=== PATIENT | male | born 1990 | race Caucasian/White ===

== ENCOUNTER 2023-10-01 08:07 | Emergency (ER) | payer OTHER ==
[~2023-10-01] VITALS: Ht 182.9 cm; Wt 136.4 kg
[2023-10-01 08:12] VITALS: TEMP 97.8
[2023-10-01] MEDS: ondansetron/PF 4mg/2ml inj IV ONE (09:00)
[2023-10-01] MEDS: normal saline 1000ML IV soln IVB ONE (09:01)
[2023-10-01] MEDS: ketorolac tromethamine 15mg/ml inj. IV ONE (09:01)
[2023-10-01 09:13] LABS: BASOPHILS % (AUTO) 0.1 % (0-1); EOSINOPHILS # (AUTO) 0.1 X10'3 (0-0.9); EOSINOPHILS % (AUTO) 0.7 % (0-6); HEMATOCRIT 48.9 % (42.0-52.0); HEMOGLOBIN 16.2 g/dl (14.0-17.9); LYMPHOCYTES # (AUTO) 0.5 X10'3 (1.1-4.8); LYMPHOCYTES % (AUTO) 4.1 % (21-51); MEAN CORPUSCULAR HEMOGLOBIN 29.2 PG (27.0-31.0); MEAN CORPUSCULAR HGB CONC 33.2 g/dL (33.0-36.5); MEAN CORPUSCULAR VOLUME 88.1 FL (78-98); MONOCYTES # (AUTO) 0.5 X10'3 (0-0.9); MONOCYTES % (AUTO) 3.6 % (2-12); NEUTROPHILS # (AUTO) 11.5 X10'3 (1.8-7.7); NEUTROPHILS % (AUTO) 91.5 % (42-75); PLATELET COUNT 224 X10'3 (140-440); RED BLOOD COUNT 5.56 X10'6 (4.70-6.10); RED CELL DISTRIBUTION WIDTH 14.7 % (11.5-14.5); WHITE BLOOD COUNT 12.5 X10'3 (4.5-11.0)
[2023-10-01 09:24] LABS: ALANINE AMINOTRANSFERASE 44 U/L (12-78); ALBUMIN 4.2 G/DL (3.4-5.0); ALBUMIN/GLOBULIN RATIO 1.2 (1.1-1.5); ALKALINE PHOSPHATASE 75 IU/L (46-116); ANION GAP 10 (8-16); ASPARTATE AMINO TRANSFERASE 17 U/L (10-37); BLOOD UREA NITROGEN 16 MG/DL (7-18); BUN/CREATININE RATIO 17.6 (10.0-20.0); CALCIUM 8.9 MG/DL (8.5-10.1); CHLORIDE 105 MMOL/L (99-107); CREATININE 0.91 MG/DL (0.60-1.10); GLUCOSE 101 MG/DL (70-104); LIPASE 24 U/L (16-77); POTASSIUM 3.5 MMOL/L (3.5-5.1); SODIUM 140 MMOL/L (135-145); TOTAL CARBON DIOXIDE 25.4 MMOL/L (24-32); TOTAL PROTEIN 7.7 G/DL (6.4-8.2); eCRCL 128 ML/MIN; eGFR > 90 ML/MIN
[2023-10-01] MEDS ORDERED: iohexol 300mg/ml 100ml inj. ONE (09:31)
[2023-10-01 10:16] LABS: BILIRUBIN,URINE NEGATIVE (Neg); CLARITY,URINE CLEAR (Clear); COLOR,URINE YELLOW (Yellow); GLUCOSE, URINE NEGATIVE (Neg); KETONES,URINE NEGATIVE (Neg); LEUKOCYTE ESTERASE ,URINE NEGATIVE (Neg); NITRITES, URINE NEGATIVE (Neg); OCCULT BLOOD,URINE NEGATIVE (Neg); PROTEIN,URINE NEGATIVE (Neg); UROBILINOGEN,URINE 0.2 E.U/dL (0.2-1.0)
[2023-10-01 10:21] VITALS: BP 121/77; PULSE 72; RESP 16; O2SAT 98
[2023-10-01 10:24] LABS: UA COLLECTION TYPE URINAL
[2023-10-01] MEDS ORDERED: ONDA-243 PO (10:44)
[2023-10-10] MEDS ORDERED: NICO-907 BC (15:03)
[2023-10-10] MEDS ORDERED: OLAN5TAB75 PO (15:03)
[2023-10-10] MEDS ORDERED: HYDR-3686 PO (15:03)
[2023-10-10] MEDS ORDERED: FLUO-167 PO (15:03)
[2023-10-10] MEDS ORDERED: PROP10TA10 PO (15:03)
== END 2023-10-01 11:02 | disposition home or self-care (01) ==
LOC: ER 08:08
DX: R11.2 Nausea with vomiting, unspecified (principal); R19.7 Diarrhea, unspecified; R10.84 Generalized abdominal pain
CPT/HCPCS: 36415; 74177; 80053; 81003; 83690; 85025; 96361; 96374; 96375; 99285; J1885; J2405; J7030; Q9967